=== PATIENT | female | born 1975 | race Caucasian/White ===

== ENCOUNTER 2018-02-27 11:05 | Observation (INO) ==
--- NOTE | 2018-02-26 15:51 | History and Physical Report ---
DATE OF ADMISSION: 02/27/2018 HISTORY: This is a 42-year-old white female, 8, para 6-0-2-6 who presents for vaginal hysterectomy, anterior and posterior colporrhaphy, perineorrhaphy and risk reduction bilateral salpingectomy. She has been having ongoing problems with symptoms of difficulty emptying her bladder, double voiding, feeling of prolapse, and difficulty of evacuating her bowels. Until approximately 2 months ago, she had a Mirena IUD in place since the of her most recent baby 6 months ago. This IUD, however, got pulled out accidentally when she pulled out a tampon. Subsequently, she has had a menses, but otherwise had been amenorrheic with the Mirena in place. The patient has had six vaginal deliveries and two spontaneous AB. She is certain she has completed her childbearing. She has a prior history of abnormal Pap smear but most recent Pap smear on 01/29 was within normal limits. A shift in the bacterial isaias was seen at that time, and she has subsequently been treated with metronidazole. She does have a distant history of LEEP procedure. PAST SURGICAL HISTORY: Includes bilateral carpal tunnel release, stents placed related to kidney stone. She has had a very recent tendon release in her left wrist. SOCIAL HISTORY: She is . She is a smoker, half-pack per day. She is employed in the OR in [place]. FAMILY HISTORY: Positive for high blood pressure for her father as well as obesity. Mother had CVA, Graves' disease, bowel disease and heart disease. On the paternal side, there is diabetes and high blood pressure. PAST MEDICAL HISTORY: Her medical history includes kidney stones, arthritis, history of bacterial vaginosis, Trichomonas, and HPV. PHYSICAL EXAMINATION: GENERAL: She is a well-developed, well-nourished female in no acute distress. VITAL SIGNS: Blood pressure is 122/84. Weight is 161 pounds. BMI is 31. HEENT: Grossly normocephalic. LUNGS: Clear. HEART: Regular rate and rhythm. ABDOMEN: Slightly rotund, nontender. No appreciable organomegaly or mass. PELVIC: External genitalia show a relaxed introitus, cystocele descends to the introitus. A mild rectocele with protrusion to approximately 2 cm from the introitus. Cervix is multiparous and descends. Uterus is multiparously sized and mobile. Neither adnexa is appreciably enlarged or tender. ASSESSMENT: Symptomatic cystocele, rectocele, uterine prolapse and introital relaxation, as well as risk reduction. PLAN: Vaginal hysterectomy, anterior and posterior repair, perineorrhaphy, and bilateral risk reduction salpingectomy. Potential complications such as bleeding, infection, the risk of the anesthetic, the risk of injury to nearby organs such as the bowel, bladder or blood vessel were reviewed. She would receive blood for life-saving purposes. She understands the potential the anterior colporrhaphy may lead to urinary retention and/or occasionally incontinence. She is aware the caliber of the vaginal opening will be different after these surgeries. She does wish to proceed. SAB:jennifer Job ID: [id number] Doc ID: [id number] Anette Garcia MD
[2018-02-26 15:59] LABS: Basophils # (Auto) 0.1 K/mcL (0.0-0.3); Eosinophils # (Auto) 0.2 K/mcL (0.0-0.7); Eosinophils % (Auto) 2.2 % (0.0-7.0); Granulocytes % (Auto) 59.5 % (38.0-78.0); Lymphocytes # (Auto) 2.1 K/mcL (1.5-4.8); Lymphocytes % (Auto) 29.5 % (15.5-49.0); Mean Cell Volume 90.2 fL (80.0-100.0); Mean Corpuscular HGB Conc 34.3 g/dL (31.0-36.0); Mean Corpuscular Hemoglobin 30.9 pg (26.0-34.0); Monocytes # (Auto) 0.6 K/mcL (0.1-0.9); Monocytes % (Auto) 7.8 % (1.0-12.0); Platelet Count 304 K/mcL (140-440); RBC 4.32 M/mcL (4.00-5.20); Red Cell Distribution Width 13.5 % (11.5-14.5)
[2018-02-26 18:32] LABS: HCG,Serum NEGATIVE <10 (<10 mIU/ml)
[~2018-02-27 11:05] MED LIST: ceFAZolin 1 GM VIAL IV SCH
[2018-02-27] MEDS ORDERED: 0.9 % SODIUM CHLORIDE 250 ML IV SCH (11:15)
[2018-02-27] MEDS ORDERED: ceFAZolin 1 GM VIAL ONE ×2 (14:30→14:31)
[2018-02-27] MEDS ORDERED: ePHEDrine 50 MG/ML AMPUL IV ONE (14:55)
[2018-02-27] MEDS ORDERED: fentaNYL 250 MCG/5 ML VIAL IV ONE (14:55)
[2018-02-27] MEDS ORDERED: GLYCOPYRROLATE 0.2 MG/ML VIAL IV ONE (14:55)
[2018-02-27] MEDS ORDERED: NEOSTIGMINE 1 MG/ML VIAL IV ONE (14:55)
[2018-02-27] MEDS ORDERED: ONDANSETRON 4 MG/2 ML VIAL IV ONE (14:55)
[2018-02-27] MEDS ORDERED: MIDAZOLAM 5 MG/5 ML VIAL IV ONE (14:55)
[2018-02-27] MEDS ORDERED: PROPOFOL 200 MG/20 ML VIAL IV ONE (14:55)
[2018-02-27] MEDS ORDERED: KETAMINE 100 MG/ML ML IV ONE (14:55)
[2018-02-27] MEDS ORDERED: DEXAMETHASONE 10 MG/ML VIAL IV ONE (14:55)
[2018-02-27] MEDS ORDERED: ROCURONIUM 10 MG/ML ML IV ONE (14:55)
[2018-02-27] MEDS ORDERED: LIDOCAINE HCL/PF 100 MG/5 ML SYRINGE IV ONE (14:55)
[2018-02-27] MEDS ORDERED: FLUMAZENIL 0.1 MG/ML ML IV PRN (16:45)
[2018-02-27] MEDS ORDERED: ACETAMINOPHEN 1,000 MG/100 ML BOTTLE IV ONE (16:45)
[2018-02-27] MEDS ORDERED: IPRATROPIUM/ALBUTEROL 3 ML AMPUL.NEB NEB PRN (16:45)
[2018-02-27] MEDS ORDERED: diphenhydrAMINE 50 MG/ML VIAL IV PRN (16:45)
[2018-02-27] MEDS ORDERED: PROMETHAZINE 25 MG/ML VIAL IV PRN (16:45)
[2018-02-27] MEDS ORDERED: KETOROLAC 30 MG/ML VIAL IV PRN (16:45)
[2018-02-27] MEDS ORDERED: LACTATED RINGERS 250 ML IV PRN (16:45)
[2018-02-27] MEDS ORDERED: LACTATED RINGERS 1,000 ML IV SCH (16:45)
[2018-02-27] MEDS ORDERED: NALOXONE HCL 0.4 MG/ML VIAL IV PRN (16:45)
[2018-02-27] MEDS ORDERED: BENZOCAINE/MENTHOL 1 LOZENGE PO PRN (16:45)
[2018-02-27] MEDS ORDERED: fentaNYL 100 MCG/2 ML VIAL IV PRN (16:45)
[2018-02-27] MEDS ORDERED: MEPERIDINE 25 MG/ML SYRINGE IV PRN (16:45)
[2018-02-27] MEDS ORDERED: ONDANSETRON 4 MG/2 ML VIAL IV PRN (16:45)
[2018-02-27] MEDS ORDERED: BUPIVACAINE W/EPI 0.25% 50 ML VIAL IJ ONE (17:03)
[2018-02-27] MEDS ORDERED: CLINDAMYCIN VAG ONE (17:07)
[2018-02-27] MEDS ORDERED: MAGNESIUM HYDROXIDE 30 ML ORAL.SUSP PO PRN (17:18)
--- NOTE | 2018-02-27 17:27 | Brief Operative Note ---
Date of procedure: 02/27/18 Pre-op diagnosis: symptomatic cystocele, rectocele, vaginal relaxation and uterine prolapse. Post-op diagnosis: same (risk reductions) Procedure: vaginal hysterectomy, anterior and posterior colporapphy, perinorraphy, bilateral salpingectomy Grafts/Implants: No Anesthesia: GETA (Ramiro Petty) Findings: cystocele, rectocele, normal appearing uterus, tubes and ovaries, relaxed introitus Surgeon: Anette Garcia Park Landscape Architect: Jose Groves Estimated blood loss (cc): 100 Specimens Removed/Pathology: other (uterus, bilateral tubes) Condition: stable Disposition: PACU
--- NOTE | 2018-02-27 17:31 | Discharge Plan ---
Discharge Plan - Patient/Caregiver Discharge Instructions Activity: resume usual activities as tolerated Diet: Regular Diet Prescriptions: Docusate Sodium [Colace] 100 mg PO BID #60 cap Hydrocodone/APAP 7.5/325Mg [[place] 7.5-325Mg] 1 - 2 tab PO Q6HP PRN #60 tab PRN Reason: Pain - Follow up Plan Follow up with: Anette Garcia MD [Physician] - 03/13/18 2:30 pm Disposition: Home, Self-Care Prognosis: Good Rehab Potential: Undetermined I certify that the patient requires SNF services.: No Overall status at discharge: patient is progressing back to baseline
[2018-02-27] MEDS: LACTATED RINGERS 1,000 ML IV SCH (19:20)
[2018-02-27] MEDS: KETOROLAC 30 MG/ML VIAL IV SCH (19:20)
[2018-02-27] MEDS: HYDROCODONE/APAP 7.5/325MG TABLET PO PRN (20:27)
[2018-02-27] MEDS ORDERED: fentaNYL 100 MCG/2 ML VIAL IV ONE (20:53)
[2018-02-27] MEDS ORDERED: LORazepam 2 MG/ML VIAL IV ONE ×2 (20:53→22:00)
[2018-02-28] MEDS: KETOROLAC 30 MG/ML VIAL IV SCH ×5 (00:08→23:42)
[2018-02-28] MEDS: 0.9 % SODIUM CHLORIDE 10 ML SYRINGE IV SCH ×4 (00:10→22:51)
[2018-02-28] MEDS: HYDROCODONE/APAP 7.5/325MG TABLET PO PRN ×6 (00:10→20:34)
[2018-02-28] MEDS: DOCUSATE SODIUM 100 MG CAPSULE PO SCH ×3 (00:11→22:47)
[2018-02-28] MEDS: LACTATED RINGERS 1,000 ML IV SCH ×3 (03:04→22:45)
--- NOTE | 2018-02-28 08:02 | Operative Note ---
DATE OF OPERATION: 02/27/2018 PREOPERATIVE DIAGNOSES: 1. Symptomatic cystocele, rectocele, and uterine prolapse with vaginal relaxation. 2. Risk reduction. POSTOPERATIVE DIAGNOSES: 1. Symptomatic cystocele, rectocele, and uterine prolapse with vaginal relaxation. 2. Risk reduction. PROCEDURE: Vaginal hysterectomy, bilateral salpingectomy, anterior and posterior colporrhaphy and perineorrhaphy. SURGEON: Anette Garcia MD TANK TRUCK ENGINE MECHANIC: Jose Groves MD DESCRIPTION OF PROCEDURE: The patient was taken to the operating room and placed under general endotracheal anesthesia by Dru Petty CRNA. She was then prepped and draped in the usual sterile fashion for vaginal surgery. A weighted speculum was placed in the vaginal vault and the cervix grasped with a single-tooth tenaculum. Quarter-percent with epinephrine injected submucosally using approximately 8 mL. A scalpel was used to make a transverse incision below the cervicovesical junction. This mucosa was then dissected away from the underlying cervix with blunt and sharp dissection. Posterior cul-de-sac next entered sharply. This incision extended transversely and a weighted speculum was replaced through this defect. Uterosacral ligaments were bilaterally clamped, cut, and suture ligated with 0 Vicryl. Lower portions of the cardinal ligaments were bilaterally clamped, cut, and suture ligated. The anterior cul-de-sac was next entered sharply. A [place] retractor used to retract the bladder and ureters upwards. The remaining anterior and posterior leaf of the broad ligaments were clamped on each side to incorporate the uterine vasculature. These pedicles were ligated with 0 Vicryl. Uterine fundus was dunked and the remaining tubo-ovarian round ligament pedicles were cross clamped, cut, and suture ligated. Uterine specimen passed off the operative field. Attention was turned to the salpingectomy. The adnexa was brought down into the visible operative field. A clamp was placed across the mesosalpinx and tube removed on each side. Pedicles secured with 0 Vicryl. Hemostasis appeared satisfactory. The peritoneum was reapproximated with a pursestring stitch of 0 Vicryl. The lower margin of the vaginal cuff anteriorly was grasped and a linear incision was dissected towards the urethra after 0.25% Marcaine was injected submucosally. The underlying pubovesical cervical fascia was next bluntly and sharply dissected off the vaginal mucosa. Cystocele then reduced with Aftab plication sutures of 0 chromic. The vaginal mucosa trimmed and the vagina reapproximated in the midline with a running locked stitch of 3-0 Vicryl. Each uterosacral ligament was next secured to its ipsilateral vaginal angle. The vaginal cuff was then closed with a running locked stitch of 0 Vicryl. Attention was turned to the posterior colporrhaphy and perineorrhaphy. A chandrika shaped area of skin excised from the posterior perineum. Quarter-percent Marcaine with epinephrine also injected submucosally prior to doing such. A linear incision was made along the vaginal mucosa superficially and the posterior vaginal mucosa was then dissected bluntly and sharply away from the underlying perirectal fascia. The rectocele then reduced with interrupteds of 0 chromic. The vaginal mucosa was trimmed and then reapproximated in the midline with a running locked stitch of 3-0 Vicryl. The perineorrhaphy was repaired with a crown stitch of 3-0 Vicryl and several additional sutures in the musculature of the perineum. The vaginal stitch was then brought down to the external perineum and the remaining skin was closed with a subcuticular running stitch of 3-0 Vicryl. A new glove was placed on the surgeon's right hand and a rectal exam was next done and no sutures were palpable through the rectum. This glove was then removed. Vaginal packing soaked with clindamycin cream was next placed. Mathews was draining clear urine. Estimated blood loss was 100 mL. Sponge, needle, and instrument counts were correct and the patient was transported to the recovery room in satisfactory condition. SAB:opal Job ID: [id number] Doc ID: [id number] Anette Garcia MD
--- NOTE | 2018-02-28 08:57 | OB/GYN Progress Note ---
Assessment and Plan - Narrative A/P Narrative: POD # 1 s/p a/p repair, vag hyst, bilat salp andperineorraphy. Pain not yet adequately controlled. Ativan seemed helpful last noc so will repeat today. Anticipate pain less following packing removal . Allow voids and check for post void residuals via bladder scans. If >300 will straight cath and allow for retry. Check CBC and electrolyes. Subjective - Subjective Patient information: Note initiated : 02/28/18 at 8:55 am Service Date, if different from initiated Date: [] Patient: Brianda Francisco 42 y/o F admitted on for Vaginal Hysterectomy with Bilateral Sapingectomy. Chief Complaint: [] pain Had rough night. C/O menstrual like cramping and low back pain. Received morphine, ativan, [place], Toradol. Using hot pack. Vag packing removed this am and galicia removed. No void yet. Denies flatus. Has been tolerating p.o. Ativan allowed for rest last noc. Objective - Vital Signs Latest vital signs: Vital Signs Temp Pulse Resp BP BP Pulse Ox 02/28/18 06:52 97.7 F 81 18 110/67 96 02/28/18 04:00 97.6 F 90 18 100/65 96 02/28/18 00:00 98.0 F 83 18 107/64 96 02/27/18 21:34 93 H 96 02/27/18 19:54 89 126/63 97 02/27/18 19:38 63 124/85 99 02/27/18 19:23 61 125/68 99 02/27/18 19:22 99 02/27/18 19:08 59 L 121/79 99 02/27/18 18:53 56 L 119/78 99 02/27/18 18:39 98.1 F 56 L 20 118/75 99 02/27/18 18:22 97.2 F 66 16 108/65 94 02/27/18 18:10 54 L 14 109/72 100 02/27/18 18:00 62 12 111/74 97 02/27/18 17:50 58 L 17 106/60 96 02/27/18 17:45 63 14 108/60 98 02/27/18 17:35 66 18 101/72 96 02/27/18 17:30 61 14 106/57 100 02/27/18 17:25 64 14 107/59 100 02/27/18 17:20 97.8 F 76 16 101/59 99 02/27/18 11:24 97.6 F 73 17 106/68 100 Intake and Output 02/27/18 02/28/18 02/28/18 21:59 05:59 13:59 Intake Total 1820 / 1820 1567 / 1567 Output Total 100 / 100 525 / 525 350 / 350 Balance 1720 / 1720 1042 / 1042 -350 / -350 Intake: IV 967 / 967 Lactated Ringers 1,000 ml @ 125 967 / 967 mls/hr IV .Q8H [facility] Rx#: [id number] Oral 600 / 600 IV - Manual Only 1820 / 1820 Output: Urine Catheter Amount 350 / 350 Void Amount 525 / 525 Estimated Blood Loss 100 / 100 Other: Meal Soup/sandwich/Ice Cream Breakfast Percent of Meal Consumed 100% 75% Feeding Ability Independent Independent Urine Appearance Clear Uretheral ([place]) Clear Clear Urine Color Straw Uretheral ([place]) Pale Straw Urine Odor Normal - Exam Lungs: right: normal Chest: Normal S1 Extremities: Present: normal Abdomen: Present: distention (slight.) Bowel sounds: Present: Present x4
[2018-02-28 10:35] LABS: Basophils # (Auto) 0 K/mcL (0.0-0.3); Basophils % (Auto) 0.3 % (0.0-2.0); Eosinophils # (Auto) 0 K/mcL (0.0-0.7); Eosinophils % (Auto) 0.1 % (0.0-7.0); Granulocytes % (Auto) 82.4 % (38.0-78.0); Lymphocytes # (Auto) 1.4 K/mcL (1.5-4.8); Lymphocytes % (Auto) 13.1 % (15.5-49.0); Mean Cell Volume 91.1 fL (80.0-100.0); Mean Corpuscular HGB Conc 33.9 g/dL (31.0-36.0); Mean Corpuscular Hemoglobin 30.9 pg (26.0-34.0); Monocytes # (Auto) 0.4 K/mcL (0.1-0.9); Monocytes % (Auto) 4.1 % (1.0-12.0); Platelet Count 273 K/mcL (140-440); RBC 3.67 M/mcL (4.00-5.20); Red Cell Distribution Width 13.8 % (11.5-14.5)
[2018-02-28] MEDS: LORazepam 0.5 MG TABLET PO PRN ×3 (11:43→22:47)
[2018-02-28 12:48] LABS: Appearance,Urine CLEAR; Bilirubin,Urine NEG (NEG); Color,Urine STRAW; Glucose,Urine (UA) NEGATIVE (NEG); Leukocyte Esterase,Urine NEG /uL (NEG); Protein,Urine NEG (NEG); Urine Blood NEG mg/dL (<0.03); Urobilinogen,Urine NEG (NEG)
[2018-03-01] MEDS: LACTATED RINGERS 1,000 ML IV SCH (04:51)
[2018-03-01] MEDS: 0.9 % SODIUM CHLORIDE 10 ML SYRINGE IV SCH ×2 (05:52→15:44)
[2018-03-01] MEDS: KETOROLAC 30 MG/ML VIAL IV SCH ×2 (05:52→12:50)
[2018-03-01] MEDS: HYDROCODONE/APAP 7.5/325MG TABLET PO PRN ×3 (05:53→15:38)
--- NOTE | 2018-03-01 08:15 | OB/GYN Progress Note ---
Assessment and Plan (1) S/P vaginal hysterectomy Status: Acute - Narrative A/P Narrative: S/P anterior and posterior colp and vag hyst. Stable. Home later today. P.O. instructions reviewed. Subjective - Subjective Patient information: Note initiated : 03/01/18 at 8:13 am Service Date, if different from initiated Date: [] Patient: Brianda Francisco 42 y/o F admitted on 02/28/18 for Vaginal Hysterectomy with Bilateral Sapingectomy. Chief Complaint: [] Patient reports: appetite normal, voiding normally, pain well controlled ( Feeling much better today. States if she stays timely with her pain meds, she' s doing much better.) Objective - Vital Signs Latest vital signs: Vital Signs Temp Pulse Resp BP Pulse Ox 03/01/18 06:29 98.3 F 18 116/67 95 03/01/18 04:00 98.1 F 70 18 120/73 95 03/01/18 00:00 97.7 F 58 L 16 109/62 95 02/28/18 20:30 97.8 F 60 18 115/68 94 02/28/18 15:32 98.7 F 65 14 109/81 97 02/28/18 12:53 97.1 F 76 18 107/65 97 Intake and Output 02/28/18 03/01/18 03/01/18 21:59 05:59 13:59 Intake Total 1800 / 1800 200 / 200 Output Total 600 / 600 Balance 1800 / 1800 -400 / -400 Intake: IV 1000 / 1000 Lactated Ringers 1,000 ml @ 125 1000 / 1000 mls/hr IV .Q8H [facility] Rx#: [id number] Oral 800 / 800 200 / 200 Output: Void Amount 600 / 600 Other: Urine Appearance Clear Urine Color Bright Yellow Blood Tinged Urine Odor Normal # Voids 1 Weight 160 lb - Exam Abdomen: Present: normal appearance, soft - Labs Labs: Abnormal lab results 02/28/18 Range/Units 09:50 RBC 3.67 L (4.00-5.20) M/mcL Hgb 11.4 L (12.0-15.0) g/dL Hct 33.4 L (36.0-48.0) % Gran % 82.4 H (38.0-78.0) % Lymph % (Auto) 13.1 L (15.5-49.0) % Gran # 8.7 H (1.8-8.0) K/mcL Lymph # (Auto) 1.4 L (1.5-4.8) K/mcL
[2018-03-01] MEDS: DOCUSATE SODIUM 100 MG CAPSULE PO SCH (08:32)
--- NOTE | 2018-03-01 14:49 | Surgical Pathology Report ---
HISTOLOGY SPECIMEN MICROSCOPIC DIAGNOSIS SPECIMEN A - UTERUS AND CERVIX, HYSTERECTOMY: -- CERVIX: - ACUTE AND CHRONIC CERVICITIS, MILD. - SQUAMOUS MUCOSA WITH PATCHY PARAKERATOSIS CONSISTENT WITH HISTORY OF PROLAPSE. - NO DYSPLASIA OR MALIGNANCY IDENTIFIED. -- ENDOMETRIUM: - PROLIFERATIVE ENDOMETRIUM. - NO HYPERPLASIA OR MALIGNANCY IDENTIFIED. -- MYOMETRIUM: - ADENOMYOSIS. SPECIMEN B - FALLOPIAN TUBES, BILATERAL, BILATERAL SALPINGECTOMIES: -- PARATUBAL CYSTS. (DMT:sln) PROCEDURAL IMPRESSION Symptomatic cystocele; rectocele; uterine prolapse and introital relaxation. GROSS DESCRIPTION Specimen A: Received in formalin labeled uterus, is a hysterectomy specimen with attached cervix which is 99 grams and 8 cm from cervix to fundus, 5 cm from left to right and 4.5 cm from anterior to posterior. The ectocervix is 3.4 x 2.5 cm with a 0.3 cm centrally located slit-like os. The serosal surface is pink-davison, smooth and glistening. The endocervical canal is up to 0.6 cm in diameter. The transformation zone is well-demarcated. The endometrial cavity is 3.9 x 2.8 cm, triangular and flattened. The myometrium is pink-davison, trabecular and up to 2.1 cm thick. The endometrium is less than 0.1 cm thick. Grossly, no lesions or areas of necrosis are identified. Bait Tier sections submitted as follows: A1 - anterior and posterior cervix with cul-de-sac shaving; A2 - anterior endomyometrium; A3 - posterior endomyometrium. Specimen B: Received in formalin labeled bilateral fallopian tubes, are two purple-davison segments of fallopian tube with intact fimbriated ends. The first tube is 4.5 cm long by up to 0.6 cm in diameter. There are multiple tiny cysts on the surface, each 0.1 cm in diameter. The second tube is 3 cm long with an average diameter of 0.6 cm. There is a 0.1 cm in diameter cyst on the surface. Also within the container, is a 2.0 x 0.9 x 0.7 cm additional portion of purple-bai tissue. There is a suture present in this fragment. Bait Tier sections submitted - one cassette. (STS:kinjal) Electronically Signed by: Juan Ramon Montero M.D.
== END 2018-03-01 16:15 | disposition home or self-care (01) ==
LOC: SUR 11:05 → MEDSUR 11:05
PROVIDERS: ADMIT Obstetrics & Gynecology; ATTEND Obstetrics & Gynecology